=== PATIENT | female | born 1930 | race Caucasian/White ===

== ENCOUNTER 2017-05-07 18:04 | Emergency (ER) | payer MEDICARE ==
[~2017-05-07] VITALS: Ht 167.6 cm; Wt 78.1 kg
[~2017-05-07 18:04] MED LIST: ALBU6.7H3 IH; APIX5TAB3 PO; CALTRATE 600 +1 EACH PO; CARV-49 PO; CETI-85 PO; DRON400T6 PO; FLO110IN IH; HYDR-3964 PO; MULT-1074 PO; SIMV20TA5 PO; SYN0.088T PO; VALS40TA2 PO
[2017-05-07] MEDS ORDERED: TETanus/Pertussis (Acell)/Diphther VAC/PF (Tdap-Adult) 0.5ml syringe IM ONE (18:50)
[2017-05-07] MEDS ORDERED: BUPIVAcaine/PF 2.5mg/ml (0.25%) 10ml vial IJ ONE (18:50)
[2017-05-07 20:52] VITALS: BP 166/69
== END 2017-05-07 21:38 | disposition home or self-care (01) ==
LOC: ER 18:05
DX: S01.01XA Laceration without foreign body of scalp, initial encounter (principal); S80.02XA Contusion of left knee, initial encounter; I11.9 Hypertensive heart disease without heart failure; I48.91 Unspecified atrial fibrillation; E11.9 Type 2 diabetes mellitus without complications; E03.9 Hypothyroidism, unspecified; Z90.49 Acquired absence of other specified parts of digestive tract; Z90.710 Acquired absence of both cervix and uterus; Z88.0 Allergy status to penicillin; Z88.1 Allergy status to other antibiotic agents; Z88.2 Allergy status to sulfonamides; Z88.8 Allergy status to other drugs, medicaments and biological substances; Z79.899 Other long term (current) drug therapy; W18.09XA Striking against other object with subsequent fall, initial encounter; Y93.01 Activity, walking, marching and hiking; Y99.8 Other external cause status; Y92.89 Other specified places as the place of occurrence of the external cause
CPT/HCPCS: 12002; 70450; 73560; 73700; 90471; 90715; 99284; A6255; A6446; A6449; J3490

== ENCOUNTER 2017-11-13 17:10 | Inpatient (IN) | payer MEDICARE ==
[~2017-11-13] VITALS: Ht 165.1 cm; Wt 83.2 kg
[2017-11-13 17:41] LABS: BASOPHILS % (AUTO) 0.5 % (0-1); EOSINOPHILS # (AUTO) 0.2 X10'3 (0-0.9); EOSINOPHILS % (AUTO) 3.3 % (0-6); HEMATOCRIT 43.1 % (35.0-45.0); HEMOGLOBIN 14.7 g/dl (12.0-16.0); LYMPHOCYTES # (AUTO) 2.6 X10'3 (1.1-4.8); LYMPHOCYTES % (AUTO) 34.4 % (21-51); MEAN CORPUSCULAR HEMOGLOBIN 31.9 PG (27.0-31.0); MEAN CORPUSCULAR HGB CONC 34.1 % (33.0-36.5); MEAN CORPUSCULAR VOLUME 93.5 FL (78-98); MEAN PLATELET VOLUME 7.1 FL (7.4-10.4); MONOCYTES # (AUTO) 0.7 X10'3 (0-0.9); MONOCYTES % (AUTO) 9.7 % (2-12); NEUTROPHILS # (AUTO) 3.9 X10'3 (1.8-7.7); NEUTROPHILS % (AUTO) 52.1 % (42-75); PLATELET COUNT 229 X10'3 (140-440); RED BLOOD COUNT 4.61 X10'6 (4.20-5.60); RED CELL DISTRIBUTION WIDTH 13.1 % (11.5-14.5); WHITE BLOOD COUNT 7.5 X10'3 (4.5-11.0)
[2017-11-13 17:53] LABS: PARTIAL THROMBOPLASTIN TIME 28 SECONDS (22-32); PROTHROMBIN TIME 10.2 SECONDS (9.0-12.0)
[2017-11-13 17:56] LABS: ALANINE AMINOTRANSFERASE 24 U/L (12-78); ALBUMIN 3.4 G/DL (3.4-5.0); ALBUMIN/GLOBULIN RATIO 0.9 (1.1-1.5); ALKALINE PHOSPHATASE 51 IU/L (46-116); ANION GAP 6 (8-16); ASPARTATE AMINO TRANSFERASE 16 U/L (10-37); BILIRUBIN,TOTAL 0.5 MG/DL (0.1-1.0); BLOOD UREA NITROGEN 28 MG/DL (7-18); CALCIUM 9.1 MG/DL (8.5-10.1); CHLORIDE 105 MMOL/L (99-107); GLUCOSE 108 MG/DL (70-104); POTASSIUM 4.3 MMOL/L (3.5-5.1); SODIUM 138 MMOL/L (135-145); TOTAL CARBON DIOXIDE 27.1 MMOL/L (24-32); TOTAL PROTEIN 7.4 G/DL (6.4-8.2); eGFR 52 ML/MIN
[2017-11-13 18:00] LABS: TROPONIN I < 0.04 NG/ML (0.0-0.05)
[2017-11-13] MEDS ORDERED: aspirin 325mg tablet PO ONE (19:00)
[2017-11-13 19:35] LABS: CLARITY,URINE CLEAR (Clear); COLOR,URINE YELLOW (Yellow); GLUCOSE, URINE NEGATIVE (Neg); KETONES,URINE NEGATIVE (Neg); LEUKOCYTE ESTERASE ,URINE SMALL (Neg); NITRITES, URINE POSITIVE (Neg); OCCULT BLOOD,URINE TRACE-LYSED (Neg); PH,URINE 5.5 (4.8-8.0); PROTEIN,URINE NEGATIVE (Neg); UROBILINOGEN,URINE 0.2 E.U/dL (0.2-1.0)
[2017-11-13 19:40] LABS: UA COLLECTION TYPE CLN CATCH MIDSTREAM
[2017-11-13 19:48] LABS: WBC,URINE 50-100 /HPF (0-4)
[2017-11-13 19:49] LABS: BACTERIA,URINE 4+ /HPF (Neg); MUCUS STRANDS NONE SEEN /LPF (Neg); RBC,URINE 0-2 /HPF (0-2); SQUAMOUS EPITHELIAL CELL,UR MODERATE /LPF (FEW)
[2017-11-13] MEDS ORDERED: CefTRIAXone 2gm/D5W 50ml 50 ML IV ONE (20:00)
[2017-11-13] MEDS ORDERED: ASPI-41 PO (21:14)
[2017-11-13] MEDS ORDERED: AMIO100T4 PO (21:14)
[2017-11-13] MEDS ORDERED: CALC-1204 PO (21:14)
[2017-11-13] MEDS ORDERED: ondansetron/PF 4mg/2ml inj IV PRN (22:30)
[2017-11-13] MEDS ORDERED: normal saline 1000ml 1,000 ML IV SCH (22:30)
[2017-11-13] MEDS ORDERED: mag hydrox/Alum hydrox/simeth 30ml oral suspension PO PRN (22:30)
[2017-11-13] MEDS ORDERED: magnesium hydroxide 30ml (MOM) UD suspension PO PRN (22:30)
[2017-11-13] MEDS ORDERED: acetaminophen 325mg tablet PO PRN ×2 (22:30)
[2017-11-13] MEDS ORDERED: HYDROcodone/acetaminophen 5mg/325mg tablet PO PRN (23:00)
[2017-11-13] MEDS ORDERED: enoxaparin 100mg/ml syringe SUBCUT ONE (23:00)
[2017-11-14 02:36] VITALS: BP 125/58
[2017-11-14 06:00] VITALS: BP 136/78
[2017-11-14 06:54] LABS: BASOPHILS % (AUTO) 0.4 % (0-1); EOSINOPHILS # (AUTO) 0.3 X10'3 (0-0.9); EOSINOPHILS % (AUTO) 4.3 % (0-6); HEMATOCRIT 41.5 % (35.0-45.0); HEMOGLOBIN 14.3 g/dl (12.0-16.0); LYMPHOCYTES # (AUTO) 2.1 X10'3 (1.1-4.8); LYMPHOCYTES % (AUTO) 29.4 % (21-51); MEAN CORPUSCULAR HEMOGLOBIN 32.3 PG (27.0-31.0); MEAN CORPUSCULAR HGB CONC 34.5 % (33.0-36.5); MEAN CORPUSCULAR VOLUME 93.5 FL (78-98); MEAN PLATELET VOLUME 7.1 FL (7.4-10.4); MONOCYTES # (AUTO) 0.6 X10'3 (0-0.9); MONOCYTES % (AUTO) 9.2 % (2-12); NEUTROPHILS % (AUTO) 56.7 % (42-75); PLATELET COUNT 215 X10'3 (140-440); RED BLOOD COUNT 4.44 X10'6 (4.20-5.60); RED CELL DISTRIBUTION WIDTH 12.6 % (11.5-14.5)
[2017-11-14 07:17] LABS: ANION GAP 5 (8-16); BLOOD UREA NITROGEN 24 MG/DL (7-18); BUN/CREATININE RATIO 28.6 (6.6-38.0); CALCIUM 8.8 MG/DL (8.5-10.1); CHLORIDE 106 MMOL/L (99-107); CHOL/HDL RATIO 2.3 (0.00-4.99); CHOLESTEROL 134 MG/DL (0-200); CREATININE 0.84 MG/DL (0.40-0.90); GLUCOSE 103 MG/DL (70-104); HDL CHOLESTEROL 58 MG/DL (35-60); LDL CHOLESTEROL 61 MG/DL (50-100); SODIUM 138 MMOL/L (135-145); TRIGLYCERIDES 101 MG/DL (20-135); eGFR 64 ML/MIN
[2017-11-14] MEDS ORDERED: amiodarone 100mg tablet PO SCH (08:00)
[2017-11-14] MEDS ORDERED: aspirin 325mg tablet, delayed-release (Ecotrin) PO SCH (08:00)
[2017-11-14] MEDS ORDERED: CefTRIAXone 2gm/D5W 50ml 50 ML IV SCH (08:00)
[2017-11-14] MEDS ORDERED: levoTHYROXINE 88mcg tablet PO SCH (08:00)
[2017-11-14 10:00] VITALS: BP 133/66
[2017-11-14] MEDS ORDERED: HYDROcodone/acetaminophen 5mg/325mg tablet PO PRN (10:44)
[2017-11-14] MEDS ORDERED: APIX5TAB3 PO (12:28)
[2017-11-14] MEDS ORDERED: lactobacillus rhamnosus 10,000 MMU CELLS/CAPSULE PO SCH (20:00)
[2017-11-14] MEDS ORDERED: atorvastatin 10mg tablet PO SCH (21:00)
== END 2017-11-14 14:10 | disposition home or self-care (01) | DRG 683 ==
LOC: ER 17:10 → ED HOLD 22:27 → ORTHO 4S 11-14 00:10
PROVIDERS: ADMIT Internal Medicine; ATTEND Internal Medicine
DX: N17.9 Acute kidney failure, unspecified (principal); G45.9 Transient cerebral ischemic attack, unspecified; N39.0 Urinary tract infection, site not specified; I48.0 Paroxysmal atrial fibrillation; E03.9 Hypothyroidism, unspecified; E78.5 Hyperlipidemia, unspecified; E11.42 Type 2 diabetes mellitus with diabetic polyneuropathy; I10 Essential (primary) hypertension; H91.90 Unspecified hearing loss, unspecified ear; K21.9 Gastro-esophageal reflux disease without esophagitis; J44.9 Chronic obstructive pulmonary disease, unspecified; E66.9 Obesity, unspecified; Z66 Do not resuscitate; Z90.49 Acquired absence of other specified parts of digestive tract; Z90.710 Acquired absence of both cervix and uterus; Z79.01 Long term (current) use of anticoagulants; Z79.82 Long term (current) use of aspirin; Z79.899 Other long term (current) drug therapy; Z88.1 Allergy status to other antibiotic agents; Z88.0 Allergy status to penicillin; Z88.2 Allergy status to sulfonamides; Z88.8 Allergy status to other drugs, medicaments and biological substances; Z86.73 Personal history of transient ischemic attack (TIA), and cerebral infarction without residual deficits; Z87.440 Personal history of urinary (tract) infections; Z82.3 Family history of stroke; Z82.49 Family history of ischemic heart disease and other diseases of the circulatory system; Z68.30 Body mass index [BMI] 30.0-30.9, adult
CPT/HCPCS: 36415; 70450; 71045; 80048; 80053; 80061; 81001; 82948; 84439; 84443; 84484; 85025; 85610; 85730; 87070; 87077; 87088; 87186; 93005; 93306; 93880; 96365; 96375; 99285; J0696; J1650; J7030

== ENCOUNTER 2018-01-08 09:23 | Day surgery (SDC) | payer MEDICARE ==
[~2018-01-08] VITALS: Ht 165.1 cm; Wt 83.9 kg
[2018-01-08] VITALS (16 sets, daily range): BP systolic 106–153; BP diastolic 46–83
[~2018-01-08 09:23] MED LIST changes: +AMIO100T4 PO; +CALC-1204 PO; -CALTRATE 600 +1 EACH PO; -CARV-49 PO; -DRON400T6 PO; -FLO110IN IH; -MULT-1074 PO
[2018-01-08] MEDS ORDERED: morphine 10mg/ml inj. IV ONE (10:00)
[2018-01-08] MEDS ORDERED: MIDAZolam 5mg/ml 2ml vial IV ONE (10:00)
[2018-01-08] MEDS ORDERED: amiodarone in dextrose, iso-osm 150mg/100ml bag IV ONE (10:00)
[2018-01-08] MEDS ORDERED: diphenhydrAMINE 25mg capsule PO ONE (10:00)
[2018-01-08] MEDS ORDERED: LORazepam 0.5 MG tablet PO ONE (10:00)
[2018-01-08] MEDS ORDERED: normal saline 1000ml 1,000 ML IV SCH (10:00)
[2018-01-08] MEDS ORDERED: atropine 0.1mg/ml 10ml syringe IV ONE (10:00)
[2018-01-08] MEDS ORDERED: APIX5TAB3 PO (10:06)
[2018-01-08] MEDS ORDERED: HYDR-565 PO (10:06)
[2018-01-08] MEDS ORDERED: ALBU18HF2 INH (10:06)
[2018-01-08 10:45] LABS: BASOPHILS % (AUTO) 0.5 % (0-1); EOSINOPHILS # (AUTO) 0.2 X10'3 (0-0.9); HEMATOCRIT 47.2 % (35.0-45.0); HEMOGLOBIN 15.6 g/dl (12.0-16.0); LYMPHOCYTES # (AUTO) 2.9 X10'3 (1.1-4.8); LYMPHOCYTES % (AUTO) 41.2 % (21-51); MEAN CORPUSCULAR HEMOGLOBIN 31.3 PG (27.0-31.0); MEAN CORPUSCULAR HGB CONC 33.1 % (33.0-36.5); MEAN CORPUSCULAR VOLUME 94.5 FL (78-98); MEAN PLATELET VOLUME 6.9 FL (7.4-10.4); MONOCYTES # (AUTO) 0.5 X10'3 (0-0.9); MONOCYTES % (AUTO) 7.4 % (2-12); NEUTROPHILS # (AUTO) 3.4 X10'3 (1.8-7.7); NEUTROPHILS % (AUTO) 47.9 % (42-75); PLATELET COUNT 247 X10'3 (140-440); RED CELL DISTRIBUTION WIDTH 13.2 % (11.5-14.5); WHITE BLOOD COUNT 7.1 X10'3 (4.5-11.0)
[2018-01-08 10:55] LABS: ALBUMIN 4.1 G/DL (3.4-5.0); ANION GAP 10 (8-16); BLOOD UREA NITROGEN 24 MG/DL (7-18); BUN/CREATININE RATIO 28.9 (6.6-38.0); CALCIUM 9.2 MG/DL (8.5-10.1); CHLORIDE 105 MMOL/L (99-107); CREATININE 0.83 MG/DL (0.40-0.90); GLUCOSE 88 MG/DL (70-104); POTASSIUM 4.1 MMOL/L (3.5-5.1); SODIUM 143 MMOL/L (135-145); TOTAL CARBON DIOXIDE 27.6 MMOL/L (24-32); eGFR 65 ML/MIN
== END 2018-01-08 14:45 | disposition home or self-care (01) ==
LOC: SSTAY O 09:23
PROVIDERS: ATTEND Internal Medicine Cardiovascular Disease
DX: I48.1 Persistent atrial fibrillation (principal); I10 Essential (primary) hypertension; E78.5 Hyperlipidemia, unspecified; E11.9 Type 2 diabetes mellitus without complications; I25.2 Old myocardial infarction; I45.81 Long QT syndrome; M19.90 Unspecified osteoarthritis, unspecified site; E03.9 Hypothyroidism, unspecified; E66.3 Overweight; K21.9 Gastro-esophageal reflux disease without esophagitis; F32.9 Major depressive disorder, single episode, unspecified; J45.998 Other asthma; G20 Parkinson's disease; Z87.01 Personal history of pneumonia (recurrent); Z86.73 Personal history of transient ischemic attack (TIA), and cerebral infarction without residual deficits; Z87.11 Personal history of peptic ulcer disease; Z87.440 Personal history of urinary (tract) infections; Z98.41 Cataract extraction status, right eye; Z98.42 Cataract extraction status, left eye; Z90.89 Acquired absence of other organs; Z79.891 Long term (current) use of opiate analgesic; Z79.82 Long term (current) use of aspirin; Z79.01 Long term (current) use of anticoagulants; Z90.710 Acquired absence of both cervix and uterus; Z90.49 Acquired absence of other specified parts of digestive tract; Z88.0 Allergy status to penicillin; Z68.30 Body mass index [BMI] 30.0-30.9, adult; Z88.2 Allergy status to sulfonamides; Z91.048 Other nonmedicinal substance allergy status; Z88.1 Allergy status to other antibiotic agents; Z86.69 Personal history of other diseases of the nervous system and sense organs; Z88.8 Allergy status to other drugs, medicaments and biological substances; Z79.899 Other long term (current) drug therapy; Z98.890 Other specified postprocedural states; Z82.49 Family history of ischemic heart disease and other diseases of the circulatory system; Z82.0 Family history of epilepsy and other diseases of the nervous system
CPT/HCPCS: 36415; 80048; 82948; 85025; 92960; 93005; J2250; J2270; J7030; Q0163; A4620; J0282; J0461

== ENCOUNTER 2018-01-11 11:59 | Emergency (ER) | payer MEDICARE ==
[~2018-01-11] VITALS: Ht 165.1 cm; Wt 81.8 kg
[~2018-01-11 11:59] MED LIST changes: +ALBU18HF2 INH; -ALBU6.7H3 IH; -HYDR-3964 PO; +HYDR-565 PO
[2018-01-11 13:19] LABS: BASOPHILS % (AUTO) 0.3 % (0-1); EOSINOPHILS # (AUTO) 0.1 X10'3 (0-0.9); EOSINOPHILS % (AUTO) 0.9 % (0-6); HEMATOCRIT 43.1 % (35.0-45.0); HEMOGLOBIN 14.6 g/dl (12.0-16.0); LYMPHOCYTES # (AUTO) 1.4 X10'3 (1.1-4.8); LYMPHOCYTES % (AUTO) 15.1 % (21-51); MEAN CORPUSCULAR HEMOGLOBIN 31.6 PG (27.0-31.0); MEAN CORPUSCULAR HGB CONC 33.9 % (33.0-36.5); MEAN CORPUSCULAR VOLUME 93.3 FL (78-98); MEAN PLATELET VOLUME 6.9 FL (7.4-10.4); MONOCYTES # (AUTO) 0.7 X10'3 (0-0.9); MONOCYTES % (AUTO) 8.1 % (2-12); NEUTROPHILS % (AUTO) 75.6 % (42-75); PLATELET COUNT 220 X10'3 (140-440); RED BLOOD COUNT 4.62 X10'6 (4.20-5.60); RED CELL DISTRIBUTION WIDTH 12.6 % (11.5-14.5); WHITE BLOOD COUNT 9.3 X10'3 (4.5-11.0)
[2018-01-11 13:29] LABS: PARTIAL THROMBOPLASTIN TIME 34 SECONDS (22-32); PROTHROMBIN TIME 10.5 SECONDS (9.0-12.0)
[2018-01-11 13:45] LABS: CLARITY,URINE CLEAR (Clear); COLOR,URINE STRAW (Yellow); GLUCOSE, URINE NEGATIVE (Neg); KETONES,URINE NEGATIVE (Neg); LEUKOCYTE ESTERASE ,URINE SMALL (Neg); NITRITES, URINE NEGATIVE (Neg); OCCULT BLOOD,URINE TRACE-INTACT (Neg); PH,URINE 6.5 (4.8-8.0); PROTEIN,URINE NEGATIVE (Neg); UROBILINOGEN,URINE 0.2 E.U/dL (0.2-1.0)
[2018-01-11 13:48] LABS: UA COLLECTION TYPE CLN CATCH MIDSTREAM
[2018-01-11 13:49] LABS: ALANINE AMINOTRANSFERASE 20 U/L (12-78); ALBUMIN 3.5 G/DL (3.4-5.0); ALBUMIN/GLOBULIN RATIO 0.8 (1.1-1.5); ALKALINE PHOSPHATASE 67 IU/L (46-116); ANION GAP 10 (8-16); ASPARTATE AMINO TRANSFERASE 22 U/L (10-37); BILIRUBIN,TOTAL 1.5 MG/DL (0.1-1.0); BLOOD UREA NITROGEN 12 MG/DL (7-18); BUN/CREATININE RATIO 17.1 (6.6-38.0); CALCIUM 8.7 MG/DL (8.5-10.1); CHLORIDE 102 MMOL/L (99-107); GLUCOSE 133 MG/DL (70-104); POTASSIUM 3.7 MMOL/L (3.5-5.1); SODIUM 138 MMOL/L (135-145); TOTAL CARBON DIOXIDE 26.1 MMOL/L (24-32); TOTAL PROTEIN 7.7 G/DL (6.4-8.2); eGFR 79 ML/MIN
[2018-01-11 13:52] LABS: BACTERIA,URINE FEW /HPF (Neg); MUCUS STRANDS NONE SEEN /LPF (Neg); RBC,URINE 0-2 /HPF (0-2); SQUAMOUS EPITHELIAL CELL,UR FEW /LPF (FEW)
[2018-01-11] MEDS ORDERED: NITR100C6 PO (14:03)
[2018-01-11] MEDS ORDERED: acetaminophen 325mg tablet PO ONE (14:35)
[2018-01-11 14:53] VITALS: BP 151/79
== END 2018-01-11 14:59 | disposition home or self-care (01) ==
LOC: ER 12:00
DX: N39.0 Urinary tract infection, site not specified (principal); R53.1 Weakness; I48.91 Unspecified atrial fibrillation; I10 Essential (primary) hypertension; E11.9 Type 2 diabetes mellitus without complications; E03.9 Hypothyroidism, unspecified; Z90.49 Acquired absence of other specified parts of digestive tract; Z90.710 Acquired absence of both cervix and uterus; Z88.0 Allergy status to penicillin; Z88.2 Allergy status to sulfonamides; Z88.8 Allergy status to other drugs, medicaments and biological substances; Z79.01 Long term (current) use of anticoagulants; Z79.899 Other long term (current) drug therapy
CPT/HCPCS: 36415; 71045; 80053; 81001; 83605; 83735; 84145; 85025; 85610; 85730; 87040; 87077; 87088; 87186; 93005; 99285; A4353

== ENCOUNTER 2018-05-29 16:53 | Inpatient (IN) | payer MEDICARE ==
[~2018-05-29] VITALS: Ht 165.1 cm; Wt 91.0 kg
[~2018-05-29 16:53] MED LIST changes: +HYDR-4353 PO; -HYDR-565 PO; +NITR100C6 PO
[2018-05-29] MEDS ORDERED: morphine 4 MG/ML inj SYRINge IV ONE (17:25)
[2018-05-29] MEDS ORDERED: ondansetron/PF 4mg/2ml inj IV ONE (17:25)
[2018-05-29] MEDS ORDERED: AMIO100T4 PO (17:47)
[2018-05-29] MEDS ORDERED: APIX5TAB3 PO (17:47)
[2018-05-29] MEDS ORDERED: LOSA25TA41 PO (17:48)
[2018-05-29] MEDS ORDERED: LEVO88TA2 PO (17:48)
[2018-05-29] MEDS ORDERED: ALBU18HF2 INH (17:49)
[2018-05-29] MEDS ORDERED: SIMV20TA PO (17:49)
[2018-05-29] MEDS ORDERED: CETI-194 PO (17:50)
[2018-05-29] MEDS ORDERED: HYDR-4353 PO (17:50)
[2018-05-29] MEDS ORDERED: MULT-955 PO (17:51)
[2018-05-29] MEDS ORDERED: CALC1TAB PO (17:51)
--- NOTE | 2018-05-29 17:52 | NUR ---
GAVE MED LIST TO PHARMACIST TO UPDATED MED REC.
[2018-05-29] MEDS ORDERED: MULT-886 PO (17:53)
[2018-05-29] MEDS ORDERED: DOCU-28 PO (17:53)
[2018-05-29 18:01] LABS: BASOPHILS % (AUTO) 0.4 % (0-1); EOSINOPHILS # (AUTO) 0.2 X10'3 (0-0.9); EOSINOPHILS % (AUTO) 2.4 % (0-6); HEMATOCRIT 42.2 % (35.0-45.0); HEMOGLOBIN 14.1 g/dl (12.0-16.0); LYMPHOCYTES # (AUTO) 2.8 X10'3 (1.1-4.8); MEAN CORPUSCULAR HEMOGLOBIN 31.8 PG (27.0-31.0); MEAN CORPUSCULAR HGB CONC 33.5 g/dL (33.0-36.5); MEAN CORPUSCULAR VOLUME 94.9 FL (78-98); MEAN PLATELET VOLUME 7.3 FL (7.4-10.4); MONOCYTES # (AUTO) 0.8 X10'3 (0-0.9); MONOCYTES % (AUTO) 8.9 % (2-12); NEUTROPHILS # (AUTO) 4.9 X10'3 (1.8-7.7); NEUTROPHILS % (AUTO) 56.3 % (42-75); PLATELET COUNT 255 X10'3 (140-440); RED BLOOD COUNT 4.45 X10'6 (4.20-5.60); RED CELL DISTRIBUTION WIDTH 12.8 % (11.5-14.5); WHITE BLOOD COUNT 8.6 X10'3 (4.5-11.0)
[2018-05-29 18:16] LABS: ALANINE AMINOTRANSFERASE 25 U/L (12-78); ALBUMIN 3.5 G/DL (3.4-5.0); ALBUMIN/GLOBULIN RATIO 0.9 (1.1-1.5); ALKALINE PHOSPHATASE 63 IU/L (46-116); ANION GAP 9 (8-16); ASPARTATE AMINO TRANSFERASE 22 U/L (10-37); BILIRUBIN,TOTAL 0.5 MG/DL (0.1-1.0); BLOOD UREA NITROGEN 21 MG/DL (7-18); BUN/CREATININE RATIO 27.6 (6.6-38.0); CALCIUM 9.7 MG/DL (8.5-10.1); CHLORIDE 103 MMOL/L (99-107); CREATININE 0.76 MG/DL (0.40-0.90); GLUCOSE 119 MG/DL (70-104); POTASSIUM 4.2 MMOL/L (3.5-5.1); SODIUM 141 MMOL/L (135-145); TOTAL CARBON DIOXIDE 29.2 MMOL/L (24-32); TOTAL PROTEIN 7.5 G/DL (6.4-8.2); eGFR 72 ML/MIN
[2018-05-29 18:26] LABS: INR 1.1 INR; PROTHROMBIN TIME 10.7 SECONDS (9.0-12.0)
[2018-05-29] MEDS: morphine 4 MG/ML inj SYRINge IV PRN ×2 (19:15→20:32)
[2018-05-29] MEDS: normal saline 1000ml 1,000 ML IV SCH (19:53)
[2018-05-29] MEDS ORDERED: magnesium hydroxide 30ml (MOM) UD suspension PO PRN (19:55)
[2018-05-29] MEDS ORDERED: ondansetron/PF 4mg/2ml inj IV PRN (19:55)
[2018-05-29] MEDS ORDERED: morphine 4 MG/ML inj SYRINge IV PRN (19:55)
[2018-05-29] MEDS ORDERED: acetaminophen 325mg tablet PO PRN (19:55)
[2018-05-29] MEDS ORDERED: mag hydrox/Alum hydrox/simeth 30ml oral suspension PO PRN (19:55)
[2018-05-29] MEDS: docusate sod 100mg capsule PO SCH (20:00)
[2018-05-29] MEDS ORDERED: albuterol 2.5 MG/3 ML nebule NEB PRN (20:10)
--- NOTE | 2018-05-29 20:33 | NUR ---
PROTOCOL SOLIS ORDERED DUE TO PATIENT IMMOBILITY.
[2018-05-29] MEDS: cetirizine 10mg tablet PO SCH (21:00)
[2018-05-29] MEDS: amiodarone 100mg tablet PO SCH (22:08)
[2018-05-29] MEDS: losartan 25mg tablet PO SCH (22:08)
[2018-05-29] MEDS: calcium carbonate/vitamin D3 tablet PO SCH (22:08)
--- NOTE | 2018-05-30 | NUR ---
DAUGHTER AT THE BS AND SHE WAS CRYING, "i DON'T WANT TO LEAVE HER." VISITED WITH HER A BIT, GAVE HER A FEW BLANKETS.
--- NOTE | 2018-05-30 02:06 | NUR ---
PT SLEEPING APPEARS IN NO ACUTE DISTRESS.
--- NOTE | 2018-05-30 02:18 | NUR ---
PT FAMILY MEMBER INCISITING THAT PATIENT NOT BE GIVEN ANTIBIOTICS BECAUSE SHE IS HIGHLY ALLERGIC TO THEM.
--- NOTE | 2018-05-30 02:53 | NUR ---
FAMILY MEMBER AT BEDSIDE, INSTRUCTED TO INFORM ME IF PATIENT WAKES UP OR COMPLAINS OF PAIN
[2018-05-30] MEDS: morphine 4 MG/ML inj SYRINge IV PRN ×3 (03:27→17:57)
[2018-05-30] MEDS: normal saline 1000ml 1,000 ML IV SCH ×3 (05:54→19:45)
--- NOTE | 2018-05-30 06:56 | NUR ---
received report via telephone from Magnus BOND from ER. Expecting pt to 7450c shortly
[2018-05-30 07:52] LABS: BASOPHILS % (AUTO) 0.3 % (0-1); EOSINOPHILS # (AUTO) 0.1 X10'3 (0-0.9); EOSINOPHILS % (AUTO) 0.7 % (0-6); HEMOGLOBIN 13.7 g/dl (12.0-16.0); LYMPHOCYTES # (AUTO) 3.1 X10'3 (1.1-4.8); LYMPHOCYTES % (AUTO) 27.2 % (21-51); MEAN CORPUSCULAR HEMOGLOBIN 32.4 PG (27.0-31.0); MEAN CORPUSCULAR HGB CONC 34.2 g/dL (33.0-36.5); MEAN CORPUSCULAR VOLUME 94.6 FL (78-98); MEAN PLATELET VOLUME 7.2 FL (7.4-10.4); MONOCYTES # (AUTO) 1.1 X10'3 (0-0.9); MONOCYTES % (AUTO) 9.8 % (2-12); PLATELET COUNT 229 X10'3 (140-440); RED BLOOD COUNT 4.22 X10'6 (4.20-5.60); RED CELL DISTRIBUTION WIDTH 12.8 % (11.5-14.5); WHITE BLOOD COUNT 11.3 X10'3 (4.5-11.0)
[2018-05-30] MEDS: docusate sod 100mg capsule PO SCH ×2 (08:00→20:46)
[2018-05-30 08:03] LABS: ALBUMIN 3.2 G/DL (3.4-5.0); ANION GAP 10 (8-16); BLOOD UREA NITROGEN 17 MG/DL (7-18); BUN/CREATININE RATIO 25.8 (6.6-38.0); CALCIUM 8.7 MG/DL (8.5-10.1); CHLORIDE 103 MMOL/L (99-107); CREATININE 0.66 MG/DL (0.40-0.90); GLUCOSE 136 MG/DL (70-104); POTASSIUM 4.3 MMOL/L (3.5-5.1); SODIUM 140 MMOL/L (135-145); TOTAL CARBON DIOXIDE 26.9 MMOL/L (24-32); eGFR 84 ML/MIN
[2018-05-30] MEDS ORDERED: ringers solution, lacted 1,000 ML IV ONE (08:34)
[2018-05-30] MEDS: multivitamins, therapeutics tablet PO SCH (09:00)
[2018-05-30] MEDS: atorvastatin 10mg tablet PO SCH (09:00)
[2018-05-30] MEDS: calcium carbonate/vitamin D3 tablet PO SCH ×2 (09:00→20:46)
[2018-05-30] MEDS: levoTHYROXINE 88mcg tablet PO SCH (09:06)
[2018-05-30] MEDS: HYDROcodone/acetaminophen 10/325mg tab PO PRN ×3 (09:08→20:47)
[2018-05-30 10:00] VITALS: BP 172/60
[2018-05-30 18:00] VITALS: BP 163/59
--- NOTE | 2018-05-30 18:59 | NUR ---
Patient in room ORTHO 4009. I have received report from Julieth BOND and had the opportunity to ask questions and assume patient care.
[2018-05-30] MEDS: amiodarone 100mg tablet PO SCH (20:46)
[2018-05-30] MEDS: losartan 25mg tablet PO SCH (20:46)
[2018-05-30] MEDS: cetirizine 10mg tablet PO SCH (20:47)
[2018-05-30 22:00] VITALS: BP 172/66
[2018-05-31] VITALS (14 sets, daily range): BP systolic 108–174; BP diastolic 43–67
[2018-05-31] MEDS: HYDROcodone/acetaminophen 10/325mg tab PO PRN ×3 (03:49→23:00)
[2018-05-31] MEDS: normal saline 1000ml 1,000 ML IV SCH ×3 (04:56→23:00)
[2018-05-31] MEDS ORDERED: famotidine 20mg tablet PO ONE (06:00)
--- NOTE | 2018-05-31 06:21 | NUR ---
Problems reprioritized. Patient report given, questions answered & plan of care reviewed with Varun BOND.
[2018-05-31 07:00] LABS: ALBUMIN 2.8 G/DL (3.4-5.0); ANION GAP 8 (8-16); BLOOD UREA NITROGEN 11 MG/DL (7-18); BUN/CREATININE RATIO 17.5 (6.6-38.0); CALCIUM 8.7 MG/DL (8.5-10.1); CHLORIDE 102 MMOL/L (99-107); CREATININE 0.63 MG/DL (0.40-0.90); GLUCOSE 154 MG/DL (70-104); POTASSIUM 3.9 MMOL/L (3.5-5.1); SODIUM 139 MMOL/L (135-145); TOTAL CARBON DIOXIDE 29.3 MMOL/L (24-32); eGFR 89 ML/MIN
[2018-05-31 07:05] LABS: BASOPHILS % (AUTO) 0.4 % (0-1); EOSINOPHILS # (AUTO) 0.3 X10'3 (0-0.9); EOSINOPHILS % (AUTO) 3.3 % (0-6); HEMATOCRIT 35.7 % (35.0-45.0); HEMOGLOBIN 12.1 g/dl (12.0-16.0); LYMPHOCYTES # (AUTO) 1.7 X10'3 (1.1-4.8); LYMPHOCYTES % (AUTO) 17.1 % (21-51); MEAN CORPUSCULAR HEMOGLOBIN 32.3 PG (27.0-31.0); MEAN CORPUSCULAR HGB CONC 34.1 g/dL (33.0-36.5); MEAN CORPUSCULAR VOLUME 94.8 FL (78-98); MEAN PLATELET VOLUME 7.3 FL (7.4-10.4); MONOCYTES # (AUTO) 1.1 X10'3 (0-0.9); MONOCYTES % (AUTO) 10.8 % (2-12); NEUTROPHILS # (AUTO) 6.9 X10'3 (1.8-7.7); NEUTROPHILS % (AUTO) 68.4 % (42-75); PLATELET COUNT 187 X10'3 (140-440); RED BLOOD COUNT 3.76 X10'6 (4.20-5.60); RED CELL DISTRIBUTION WIDTH 12.2 % (11.5-14.5); WHITE BLOOD COUNT 10.2 X10'3 (4.5-11.0)
--- NOTE | 2018-05-31 07:08 | NUR ---
Patient in room ORTHO 4009. I have received report from Abbie BOND and had the opportunity to ask questions and assume patient care.
[2018-05-31] MEDS ORDERED: BUPIVAcaine/PF 2.5mg/ml (0.25%) 10ml vial ONE (07:13)
--- NOTE | 2018-05-31 07:13 | NUR ---
report given to KYLE Roy RN
[2018-05-31] MEDS ORDERED: ringers solution, lacted 1,000 ML IV SCH (07:49)
[2018-05-31] MEDS ORDERED: ondansetron/PF 4mg/2ml inj IV PRN (07:50)
[2018-05-31] MEDS ORDERED: fentaNYL/PF 50MCG/1 ML 2ML syringe IV PRN ×2 (07:50)
[2018-05-31] MEDS ORDERED: morphine 4 MG/ML inj SYRINge IV PRN ×2 (07:50)
[2018-05-31] MEDS ORDERED: hydrALAZINE 20mg/ml inj. IV PRN (07:50)
[2018-05-31] MEDS ORDERED: labetalol 20mg/4ml (5mg/ml) syringe IV PRN (07:50)
[2018-05-31] MEDS: atorvastatin 10mg tablet PO SCH (08:00)
[2018-05-31] MEDS: calcium carbonate/vitamin D3 tablet PO SCH ×3 (08:00→19:57)
[2018-05-31] MEDS: multivitamins, therapeutics tablet PO SCH (08:00)
[2018-05-31] MEDS: docusate sod 100mg capsule PO SCH ×3 (08:00→19:56)
[2018-05-31] MEDS: levoTHYROXINE 88mcg tablet PO SCH (08:00)
[2018-05-31] MEDS ORDERED: fentaNYL/PF 50MCG/1 ML 2ML syringe ONE (08:04)
[2018-05-31] MEDS ORDERED: clindamycin phosphate 150mg/ml inj. ONE (08:26)
--- NOTE | 2018-05-31 09:05 | NUR ---
Received from OR via , accompanied by Anesthesiologist DR PERSAUD and report given by Anesthesiolgist. PT SLEEPING, BUT OPENS EYES TO VOICE, SKIN WARM AND PINK, MOVES EXT X 4, DORAL PEDAL PULSES +3, SOLIS TO GRAVITY WITH CLOUDY YELLOW URINE, PIV LEFT WRIST 20G WITH LR 100ML/HR, SCD'S, ONE LARGE AND ONE SMALL ISLAND DRESSING TO LEFT HIP CD, BS 123, DR PERSAUD NOTIFIED OF RESULT, NO C/O PAIN, VSS.
--- NOTE | 2018-05-31 09:35 | NUR ---
Report called to receiving nurse. Transferred via BED Belongings . Special Issues communicated to receiving nurse. PT WAKES TO VOICE, SKIN WARM AND PINK, SCDS IN PLACE, PIV PATENT, SOLIS TO GRAVITY, NO C/O PAIN, ISLAND DRESSING CD, DENIES ICE CHIPS. WAITING FOR RECEIVING NURSE TO CALL BACK TO GIVE REPORT.
[2018-05-31] MEDS: morphine 4 MG/ML inj SYRINge IV PRN ×2 (09:44→13:21)
--- NOTE | 2018-05-31 10:37 | NUR ---
DM consult: Patient's A1c is 6.0; DM ed not warranted at this time. Will continue to follow. Addendum: 05/31/18 at [address] Amended: Links added.
[2018-05-31] MEDS: clindamycin 600mg/D5W 50ml 50 ML IV SCH ×2 (13:27→19:46)
--- NOTE | 2018-05-31 18:17 | NUR ---
Problems reprioritized. Patient report given, questions answered & plan of care reviewed with Beatriz Castro RN.
[2018-05-31] MEDS: amiodarone 100mg tablet PO SCH (20:42)
[2018-05-31] MEDS: cetirizine 10mg tablet PO SCH (20:42)
[2018-05-31] MEDS: losartan 25mg tablet PO SCH (20:42)
[2018-06-01] MEDS: normal saline 1000ml 1,000 ML IV SCH ×2 (00:06→20:03)
[2018-06-01 02:00] VITALS: BP 121/43
[2018-06-01] MEDS: clindamycin 600mg/D5W 50ml 50 ML IV SCH ×3 (02:21→14:00)
[2018-06-01] MEDS: HYDROcodone/acetaminophen 10/325mg tab PO PRN ×3 (05:08→15:04)
[2018-06-01 06:00] VITALS: BP 156/62
--- NOTE | 2018-06-01 06:22 | NUR ---
RECEIVED REPORT FROM JORJE Castro RN
[2018-06-01 07:13] LABS: BASOPHILS # (AUTO) 0.1 X10'3 (0-0.2); BASOPHILS % (AUTO) 0.5 % (0-1); EOSINOPHILS # (AUTO) 0.4 X10'3 (0-0.9); EOSINOPHILS % (AUTO) 3.2 % (0-6); HEMATOCRIT 29.4 % (35.0-45.0); LYMPHOCYTES # (AUTO) 1.5 X10'3 (1.1-4.8); LYMPHOCYTES % (AUTO) 12.4 % (21-51); MEAN CORPUSCULAR HEMOGLOBIN 32.4 PG (27.0-31.0); MEAN CORPUSCULAR HGB CONC 34.2 g/dL (33.0-36.5); MEAN CORPUSCULAR VOLUME 94.8 FL (78-98); MEAN PLATELET VOLUME 7.1 FL (7.4-10.4); MONOCYTES # (AUTO) 1.3 X10'3 (0-0.9); MONOCYTES % (AUTO) 10.9 % (2-12); NEUTROPHILS # (AUTO) 8.8 X10'3 (1.8-7.7); PLATELET COUNT 193 X10'3 (140-440); RED CELL DISTRIBUTION WIDTH 12.4 % (11.5-14.5)
[2018-06-01 07:26] LABS: ALBUMIN 2.5 G/DL (3.4-5.0); ANION GAP 11 (8-16); BLOOD UREA NITROGEN 10 MG/DL (7-18); BUN/CREATININE RATIO 14.5 (6.6-38.0); CHLORIDE 103 MMOL/L (99-107); CREATININE 0.69 MG/DL (0.40-0.90); GLUCOSE 155 MG/DL (70-104); POTASSIUM 3.8 MMOL/L (3.5-5.1); SODIUM 140 MMOL/L (135-145); TOTAL CARBON DIOXIDE 25.9 MMOL/L (24-32); eGFR 80 ML/MIN
[2018-06-01] MEDS: docusate sod 100mg capsule PO SCH ×2 (09:04→20:00)
[2018-06-01] MEDS: atorvastatin 10mg tablet PO SCH (09:04)
[2018-06-01] MEDS: multivitamins, therapeutics tablet PO SCH (09:04)
[2018-06-01] MEDS: calcium carbonate/vitamin D3 tablet PO SCH ×2 (09:04→19:59)
[2018-06-01] MEDS: levoTHYROXINE 88mcg tablet PO SCH (09:05)
[2018-06-01] MEDS ORDERED: HYDR-3972 PO (11:14)
[2018-06-01 13:55] LABS: CLARITY,URINE CLOUDY (Clear); COLOR,URINE YELLOW (Yellow); GLUCOSE, URINE NEGATIVE (Neg); KETONES,URINE NEGATIVE (Neg); LEUKOCYTE ESTERASE ,URINE MODERATE (Neg); NITRITES, URINE POSITIVE (Neg); OCCULT BLOOD,URINE MODERATE (Neg); PROTEIN,URINE 30 mg/dl (Neg); UROBILINOGEN,URINE 0.2 E.U/dL (0.2-1.0)
[2018-06-01 14:00] VITALS: BP_SYST 121; BP_SYST 134; BP_DIAS 47
[2018-06-01 14:05] LABS: UA COLLECTION TYPE FOLEY CATH
[2018-06-01 14:33] LABS: MUCUS STRANDS MODERATE /LPF (Neg); SQUAMOUS EPITHELIAL CELL,UR MANY /LPF (FEW)
[2018-06-01 14:34] LABS: WBC,URINE TNTC /HPF (0-4)
[2018-06-01 14:37] LABS: BACTERIA,URINE 3+ /HPF (Neg)
--- NOTE | 2018-06-01 15:51 | NUR ---
SPOKE W/PHARMACY AND LAST DOSE OF ABX NOT AVAILABLE AT THIS TIME
[2018-06-01 18:30] VITALS: BP 107/36
--- NOTE | 2018-06-01 18:38 | NUR ---
GAVE REPORT TO July,
[2018-06-01 19:35] VITALS: BP 98/38
[2018-06-01] MEDS: cetirizine 10mg tablet PO SCH (20:00)
[2018-06-01] MEDS: amiodarone 100mg tablet PO SCH (20:00)
--- NOTE | 2018-06-01 20:40 | NUR ---
Patient report given, questions answered & plan of care reviewed with Jennifer BOND.
[2018-06-01] MEDS: losartan 25mg tablet PO SCH (21:00)
[2018-06-01 22:00] VITALS: BP 123/40
[2018-06-02] MEDS: HYDROcodone/acetaminophen 10/325mg tab PO PRN (03:29)
[2018-06-02] MEDS: normal saline 1000ml 1,000 ML IV SCH (05:44)
--- NOTE | 2018-06-02 06:27 | NUR ---
RECEIVED REPORT FROM JOEL BOND
[2018-06-02 07:20] LABS: ALBUMIN 2.1 G/DL (3.4-5.0); ANION GAP 8 (8-16); BLOOD UREA NITROGEN 14 MG/DL (7-18); BUN/CREATININE RATIO 25.9 (6.6-38.0); CALCIUM 7.9 MG/DL (8.5-10.1); CHLORIDE 104 MMOL/L (99-107); CREATININE 0.54 MG/DL (0.40-0.90); GLUCOSE 129 MG/DL (70-104); POTASSIUM 3.6 MMOL/L (3.5-5.1); SODIUM 138 MMOL/L (135-145); TOTAL CARBON DIOXIDE 26.5 MMOL/L (24-32); eGFR > 90 ML/MIN
[2018-06-02 07:47] VITALS: BP 161/62
[2018-06-02] MEDS: levoTHYROXINE 88mcg tablet PO SCH (08:13)
[2018-06-02] MEDS: atorvastatin 10mg tablet PO SCH (08:13)
[2018-06-02] MEDS: docusate sod 100mg capsule PO SCH (08:13)
[2018-06-02] MEDS: calcium carbonate/vitamin D3 tablet PO SCH (08:13)
[2018-06-02] MEDS: multivitamins, therapeutics tablet PO SCH (08:13)
[2018-06-02] MEDS: HYDROcodone/acetaminophen 5mg/325mg tablet PO PRN ×2 (09:09→14:34)
[2018-06-02 10:31] LABS: BASOPHILS % (AUTO) 0.1 % (0-1); EOSINOPHILS # (AUTO) 0.4 X10'3 (0-0.9); EOSINOPHILS % (AUTO) 2.8 % (0-6); HEMATOCRIT 26.8 % (35.0-45.0); HEMOGLOBIN 9.1 g/dl (12.0-16.0); LYMPHOCYTES # (AUTO) 1.8 X10'3 (1.1-4.8); LYMPHOCYTES % (AUTO) 13.8 % (21-51); MEAN CORPUSCULAR HGB CONC 33.8 g/dL (33.0-36.5); MEAN CORPUSCULAR VOLUME 94.6 FL (78-98); MEAN PLATELET VOLUME 7.1 FL (7.4-10.4); MONOCYTES # (AUTO) 1.4 X10'3 (0-0.9); NEUTROPHILS # (AUTO) 9.5 X10'3 (1.8-7.7); NEUTROPHILS % (AUTO) 72.3 % (42-75); PLATELET COUNT 215 X10'3 (140-440); RED BLOOD COUNT 2.83 X10'6 (4.20-5.60); RED CELL DISTRIBUTION WIDTH 12.6 % (11.5-14.5); WHITE BLOOD COUNT 13.2 X10'3 (4.5-11.0)
[2018-06-02 12:02] VITALS: BP 141/49
--- NOTE | 2018-06-02 15:55 | NUR ---
Patient was discharged Iv and tele was removed. Patient IV and tele was removed. Patient left via car a van.
[2018-06-02] MEDS ORDERED: LEVO500T2 PO (16:04)
== END 2018-06-02 15:55 | DRG 853 ==
LOC: ER 16:54 → ED HOLD 19:53 → ORTHO 4S 05-30 07:20
PROVIDERS: ADMIT Hospitalist; ATTEND Internal Medicine
PROC: 0QS606Z Reposition Right Upper Femur with Intramedullary Internal Fixation Device, Open Approach (ICD-10-PCS; principal; 2018-05-31 07:57)
DX: A41.9 Sepsis, unspecified organism (principal); S72.144A Nondisplaced intertrochanteric fracture of right femur, initial encounter for closed fracture; D62 Acute posthemorrhagic anemia; N39.0 Urinary tract infection, site not specified; I48.2 Chronic atrial fibrillation; E03.9 Hypothyroidism, unspecified; E11.9 Type 2 diabetes mellitus without complications; E78.5 Hyperlipidemia, unspecified; G89.29 Other chronic pain; K21.9 Gastro-esophageal reflux disease without esophagitis; J44.9 Chronic obstructive pulmonary disease, unspecified; I10 Essential (primary) hypertension; H91.90 Unspecified hearing loss, unspecified ear; Z66 Do not resuscitate; Z77.22 Contact with and (suspected) exposure to environmental tobacco smoke (acute) (chronic); G62.9 Polyneuropathy, unspecified; W18.39XA Other fall on same level, initial encounter; Z79.01 Long term (current) use of anticoagulants; Z79.890 Hormone replacement therapy; Z90.710 Acquired absence of both cervix and uterus; Z88.0 Allergy status to penicillin; Z88.2 Allergy status to sulfonamides; Z88.1 Allergy status to other antibiotic agents; Z88.8 Allergy status to other drugs, medicaments and biological substances; Z90.49 Acquired absence of other specified parts of digestive tract; Y93.89 Activity, other specified; Y92.89 Other specified places as the place of occurrence of the external cause; Y99.8 Other external cause status
CPT/HCPCS: 36415; 71045; 73502; 76000; 80048; 80053; 81001; 82948; 83036; 84443; 85025; 85610; 86885; 86900; 86901; 87070; 87077; 87088; 87186; 93005; 94760; 96374; 96375; 97110; 97116; 97162; 97530; 99285; A7000; G0378; J2270; J2405; J3010; J3490; J7030; J7120